=== PATIENT | female | born 1945 | race Caucasian/White ===

== ENCOUNTER → 2020-09-17 | Outpatient (CLI) | payer MEDICARE ==
[~2020-09-17] MED LIST: ACETAMINOPHEN500 MG PO; AZITHROMYCIN500 MG PO; BRIMONIDINE TAR15 ML OP; CEFUROXIME500 MG PO; COREG 25MG TAB25 MG PO; DECADRON6 MG PO; GLUCOPHAGE 500500 MG PO; HYDROCHLOROTHIA25 MG PO; HYDROCODON-ACE1 EAC4 PO; K-DUR TAB 10 M10 MEQ PO; LATANOPROST2.5 ML OP; NEURONTIN 100100 MG PO; NORCO 5-325 TA1 EACH PO; NORVASC5 MG PO; OTEZLA30 MG PO; PHENERGAN 25 MG25 M1 PO; ROBITUSSIN DM UD5 ML PO
== END ==
LOC: KOH-I 09-05 08:45
DX: M25.512 Pain in left shoulder (principal); M75.102 Unspecified rotator cuff tear or rupture of left shoulder, not specified as traumatic; M62.512 Muscle wasting and atrophy, not elsewhere classified, left shoulder; M19.012 Primary osteoarthritis, left shoulder
CPT/HCPCS: 73221

== ENCOUNTER → 2020-10-21 | Outpatient (CLI) | payer MEDICARE ==
[2020-10-21 11:40] LABS: HEMOGLOBIN 15.4 gm/dl (12.3-15.3); RED BLOOD COUNT 4.65 M/UL (4.00-5.10); WHITE BLOOD COUNT 4.6 K/UL (4.5-11.0)
[2020-10-21 12:20] LABS: BUN/CREATININE RATIO 22 (0-10)
== END ==
LOC: LAB 10:42
PROVIDERS: Orthopaedic Surgery Adult Reconstructive Orthopaedic Surgery
DX: Z01.818 Encounter for other preprocedural examination (principal); M75.102 Unspecified rotator cuff tear or rupture of left shoulder, not specified as traumatic; R94.31 Abnormal electrocardiogram [ECG] [EKG]
CPT/HCPCS: 36415; 71046; 80053; 85027; 93005

== ENCOUNTER → 2020-12-03 | Outpatient (CLI) | payer MEDICARE ==
[~2020-12-03] VITALS: Ht 162.6 cm; Wt 98.9 kg
== END ==
LOC: OPSV 07:47
DX: L40.50 Arthropathic psoriasis, unspecified (principal)
CPT/HCPCS: 96365; 96366; 96375; J1720; J7050; Q5103

== ENCOUNTER → 2020-12-17 | Outpatient (CLI) | payer MEDICARE ==
[~2020-12-17] VITALS: Ht 162.6 cm; Wt 98.9 kg
== END ==
LOC: OPSV 07:53
DX: L40.50 Arthropathic psoriasis, unspecified (principal)
CPT/HCPCS: 96365; 96366; 96375; J1720; J7050; Q5103

== ENCOUNTER → 2021-01-14 | Outpatient (CLI) | payer MEDICARE ==
[~2021-01-14] VITALS: Ht 162.6 cm; Wt 98.9 kg
[2021-01-14 11:25] LABS: HEMOGLOBIN 15.6 gm/dl (12.3-15.3); RED BLOOD COUNT 4.67 M/UL (4.00-5.10); WHITE BLOOD COUNT 4.9 K/UL (4.5-11.0)
[2021-01-14 11:48] LABS: BUN/CREATININE RATIO 36 (0-10)
== END ==
LOC: OPSV 10:00
PROVIDERS: Internal Medicine
DX: L40.50 Arthropathic psoriasis, unspecified (principal); Z79.899 Other long term (current) drug therapy
CPT/HCPCS: 80053; 85025; 85652; 86140; 96365; 96366; 96375; J1720; J7050; Q5103

== ENCOUNTER → 2021-03-11 | Outpatient (CLI) | payer MEDICARE ==
[~2021-03-11] VITALS: Ht 162.6 cm; Wt 98.9 kg
== END ==
LOC: OPSV 09:31
DX: L40.50 Arthropathic psoriasis, unspecified (principal)
CPT/HCPCS: 96365; 96375; J1720; J7050; Q5103